=== PATIENT | female | born 1995 ===

== ENCOUNTER 2023-01-28 22:16 | Emergency (ER) | payer OTHER, SELFPAY ==
[2023-01-28] MEDS ORDERED: ONDANSETRON 4 MG/2 ML VIAL ONE (22:59)
[2023-01-28] MEDS ORDERED: NA CHLORIDE 0.9% 1,000 ML ONE (22:59)
[2023-01-28 23:18] LABS: Absolute Lymphocytes (CBC) 0.7 K/uL (0.7-4.9); Hematocrit 42.9 % (36.0-45.0); MCV 91.2 fL (80-100); MPV 9.9 fL (7.6-11.3); Platelets 267 thou/uL (152-406)
[2023-01-28 23:35] LABS: Albumin 3.5 g/dL (3.4-5.0); Bilirubin Total 1.2 mg/dL (0.2-1.0); Potassium 3.5 mEq/L (3.5-5.1)
[2023-01-29 00:16] LABS: Blood Morphology Comment NOT SEEN (NOT SEEN); Platelet Estimate ADEQ; White Blood Cell Scan OK (OK)
[2023-01-29] MEDS ORDERED: KETOROLAC 30 MG/ML INJ ONE (00:23)
[2023-01-29 00:52] LABS: Specific Gravity 1.029 (1.005-1.030)
--- NOTE | 2023-01-29 01:08 | ER ---
Nurse's Notes 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 ap3 patient rates the pain as a 6/10 on the pain scale at this time. Coronavirus screen: At this time, the client does not indicate any symptoms associated with coronavirus-19. Ebola Screen: No symptoms or risks identified at this time. Initial Sepsis Screen: Does the patient meet any 2 criteria? No. Patient's initial sepsis screen is negative. Does the patient have a suspected source of infection? Yes: Acute abdominal pain. Risk Assessment: Do you want to hurt yourself or someone else? Patient reports no desire to harm self or others. Onset of symptoms was January 28, 2023 at 10:00. 22:38 Method Of Arrival: Ambulatory ap3 22:38 Acuity: TOPHER 3 ap3 Triage Assessment: 22:39 General: Appears in no apparent distress. Behavior is cooperative, appropriate for age. ap3 Pain: Complains of pain in abdomen Pain currently is 6 out of 10 on a pain scale. at worst was 8 out of 10 on a pain scale. Pain began 12 hours ago. Neuro: Level of Consciousness is awake, alert, obeys commands, Oriented to person, place, time, situation. Cardiovascular: Patient's skin is warm and dry. Respiratory: Airway is patent Respiratory effort is even, unlabored, Respiratory pattern is regular, symmetrical. GI: Reports lower abdominal pain, upper abdominal pain, nausea, vomiting. 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 - Social history:: Smoking status: Patient reports the use of cigarette tobacco products, smokes 1.5 packs per day. Screenin:40 [facility] ED Fall Risk Assessment (Adult) History of falling in the last 3 months, ap3 including since admission No falls in past 3 months (0 pts). Abuse screen: Denies threats or abuse. Nutritional screening: No deficits noted. Tuberculosis screening: No symptoms or risk factors identified. Assessment: 23:00 General: Appears uncomfortable. GI: Reports intolerance of fluids, intolerance of food, nw1 nausea, vomiting. 23:00 Pain: Complains of pain in right leg and left leg. Cardiovascular: Reports shortness of nw1 breath, Denies chest pain. Respiratory: Reports shortness of breath at rest none noted. GI: Abdomen is flat. Musculoskeletal: No deficits noted. No signs and/or symptoms reported regarding the musculoskeletal system. 23:53 Reassessment: Pt request tylenol. made aware. nw1 01/29 00:38 Reassessment: Pt states relief from nausea. Pt ambulated to restroom and gave urine nw1 sample. Call light at bedside. Will continue to monitor. Vital Signs: 01/28 22:38 BP 134 / 83; Pulse 90; Resp 17; Temp 97.8; Pulse Ox 100% ; Weight 65.77 kg; Pain 6/10; ap3 23:00 BP 124 / 73; Pulse 89; Resp 19 S; Pulse Ox 97% on R/A; km8 01/29 00:00 BP 123 / 73; Pulse 90; Resp 17; Pulse Ox 98% ; nw1 00:30 BP 115 / 53; Pulse 86; Pulse Ox 97% ; nw1 01/28 22:38 Pain Scale: Adult ap3 ED Course: 01/28 22:21 Patient arrived in ED. ag3 22:30 Iain Lindsay DO is Attending Physician. ms3 22:39 Triage completed. ap3 22:40 Arm band placed on right wrist. ap3 22:40 Patient has correct armband on for positive identification. Bed in low position. Call ap3 light in reach. Side rails up X 1. Pulse ox on. NIBP on. 22:43 Philomena Holloway, RN is Primary Nurse. nw1 23:04 Inserted saline lock: 20 gauge in right antecubital area, using aseptic technique. nw1 Blood collected. 23:08 CBC with Diff Sent. nw1 23:08 CMP Sent. nw1 23:08 Lipase Sent. nw1 23:23 Provided Education on: POC. Therapeutic breathing techniques. Lights dimmed. nw1 23:24 No provider procedures requiring assistance completed. nw01/29 00:48 Test, Urine Sent. nw 01:07 Suraj Lewis DO is Referral Physician. ms3 01:36 IV discontinued, intact, bleeding controlled, No redness/swelling at site. Pressure nw1 dressing applied. Administered Medications: 01/28 23:00 Drug: NS 0.9% IV 1000 ml IV at 1 bolus Per protocol; 1000 mL bolus Route: IV; Rate: 1 nw1 bolus; Site: right antecubital; 23:00 Drug: Ondansetron IVP 4 mg IVP once; over 2 minutes Route: IVP; Site: right antecubital;nw01/29 00:17 Drug: Ketorolac IVP 10 mg 10 mg IVP once Route: IVP; Site: right antecubital; nw 00:48 Follow up: Response: No adverse reaction nw Medication: 00:20 VIS not applicable for this client. nw Outcome: 01/28 23:59 Discharged to nw1 01/29 00:20 Condition: stable nw1 Instructed on need for urine 01:07 Discharge ordered by . ms3 01:36 Discharged to home ambulatory, nw1 01:36 Condition: improved 01:36 Discharge instructions given to patient, Instructed on discharge instructions, follow up and referral plans. medication usage, Demonstrated understanding of instructions, follow-up care, medications, Prescriptions given X 1, 01:37 Patient left the ED. nw Signatures: Eunice Julio, RN RN ap3 Miladys Romero 3 Iain Lindsay DO DO ms3 Jess Britt RN RN km8 Philomena Holloway, JIHAN RN nw1 Corrections: (The following items were deleted from the chart) 00:00 01/28 23:56 Urine 950, output 950, nw nw01/29 00:00 01/28 23:56 BP 173 / 98; Pulse 88bpm; Resp 21bpm; Pulse Ox 95%; nw nw
--- NOTE | 2023-01-29 01:08 | EDPHYS ---
Physician Documentation [facility] Name: Annalisa Fuentes Age: 27 yrs Sex: Female : 1995 Arrival Date: 01/28/2023 Time: 22:16 Bed 16 Private MD: ED Physician Iain Lindsay HPI: 01/29 01:07 This 27 yrs old Female presents to ER via Ambulatory with complaints of Nausea/Vomiting.ms3 01:07 27-year-old female with no past medical history presents to the emergency department ms3 for nausea, vomiting, diarrhea that has been ongoing for 12 hours. Patient notes she has also had dizziness and upper abdominal pain. Patient states vomiting makes her symptoms better and denies inciting factors.. 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 - Social history:: Smoking status: Patient reports the use of cigarette tobacco products, smokes 1.5 packs per day. ROS: 01/29 01:07 Constitutional: Negative for fever, and chills. Cardiovascular: Negative for chest ms3 pain, and palpitations. Respiratory: Negative for shortness of breath, cough, wheezing, and pleuritic chest pain, MS/Extremity: Negative for injury and deformity, Skin: Negative for injury, rash, and discoloration, Abdomen/GI: Positive for abdominal pain, nausea, vomiting, diarrhea, All other systems are negative, Exam: 01:07 Constitutional: This is a well developed, well nourished patient who is awake, alert, ms3 and in no acute distress. Head/Face: Normocephalic, atraumatic. Neck: Trachea midline, no cervical lymphadenopathy. Supple, full range of motion without nuchal rigidity, or vertebral point tenderness. No Meningismus. Chest/axilla: Normal chest wall appearance and motion. Nontender with no deformity. Cardiovascular: Regular rate and rhythm with a normal S1 and S2. No gallops, murmurs, or rubs. Normal PMI, no JVD. No pulse deficits. Respiratory: Lungs have equal breath sounds bilaterally, clear to auscultation and percussion. No rales, rhonchi or wheezes noted. No increased work of breathing, no retractions or nasal flaring. Abdomen/GI: Soft, non-tender, with normal bowel sounds. No distension or tympany. No guarding or rebound. No evidence of tenderness throughout. Skin: Warm, dry with normal turgor. Normal color with no rashes, no lesions, and no evidence of cellulitis. MS/ Extremity: Pulses equal, no cyanosis. Neurovascular intact. Full, normal range of motion. Vital Signs: 01/28 22:38 BP 134 / 83; Pulse 90; Resp 17; Temp 97.8; Pulse Ox 100% ; Weight 65.77 kg; Pain 6/10; ap3 23:00 BP 124 / 73; Pulse 89; Resp 19 S; Pulse Ox 97% on R/A; km8 01/29 00:00 BP 123 / 73; Pulse 90; Resp 17; Pulse Ox 98% ; nw1 00:30 BP 115 / 53; Pulse 86; Pulse Ox 97% ; nw1 01/28 22:38 Pain Scale: Adult ap3 MDM: 01/28 22:35 Patient medically screened. ms3 01/29 01:07 Differential diagnosis: Nonspecific abd pain, gastritis, viral gastroenteritis, ms3 gastroenteritis. Data reviewed: vital signs, nurses notes, lab test result(s), and as a result, I will discharge patient. I considered the following discharge prescriptions or medication management in the emergency department Medications were administered in the Emergency Department. See MAR. Counseling: I had a detailed discussion with the patient and/or guardian regarding the historical points, exam findings, and any diagnostic results supporting the discharge/admit diagnosis, lab results, the need for outpatient follow up, to return to the emergency department if symptoms worsen or persist or if there are any questions or concerns that arise at home. Special discussion: Based on the patient's Hx, exam, and Dx evaluation, there is no indication for emergent surgery or inpatient Tx. It is understood by the patient/guardian that if the Sx's persist or worsen they need to return immediately for re-evaluation. ED course: Discussed labs with patient. White blood count likely elevated secondary to patient's emesis. Patient to follow-up with her primary care physician in 2 to 3 days. Patient understands agrees with plan. All questions were answered. Return precautions discussed include worsening symptoms, abdominal pain, or any other concerns. On reevaluation patient symptoms improved, patient is alert and orient x4, no apparent distress, nontoxic-appearing, ambulatory in emergency department, speaking full sentences, tolerating p.o. patient given prescription for p.o. Zofran. 01/28 22:35 Order name: CBC with Diff; Complete Time: 00:53 ms3 01/28 22:35 Order name: CMP; Complete Time: 00:02 ms3 01/28 22:35 Order name: Lipase; Complete Time: 00:02 ms3 01/28 23:21 Order name: CBC Smear Scan; Complete Time: 00:53 EDMS 01/29 00:02 Order name: Test, Urine; Complete Time: 01:04 ms3 01/28 22:35 Order name: IV Saline Lock; Complete Time: 23:00 ms3 01/28 22:35 Order name: Labs collected and sent; Complete Time: 23:00 ms3 01/29 00:54 Order name: PO challenge; Complete Time: 01:12 ms3 Administered Medications: 01/28 23:00 Drug: NS 0.9% IV 1000 ml IV at 1 bolus Per protocol; 1000 mL bolus Route: IV; Rate: 1 nw1 bolus; Site: right antecubital; 23:00 Drug: Ondansetron IVP 4 mg IVP once; over 2 minutes Route: IVP; Site: right antecubital;nw1 01/29 00:17 Drug: Ketorolac IVP 10 mg 10 mg IVP once Route: IVP; Site: right antecubital; nw1 00:48 Follow up: Response: No adverse reaction nw1 Disposition Summary: 01/29/23 01:07 Discharge Ordered Notes: Location: Home ms3 Condition: Stable ms3 Diagnosis - Nausea with vomiting, unspecified ms3 Followup: ms3 - With: Suraj Lewis, DO - When: 2 - 3 days - Reason: Recheck today's complaints Discharge Instructions: - Discharge Summary Sheet ms3 - Nausea and Vomiting, Adult ms3 Forms: - Medication Reconciliation Form ms3 - Thank You Letter ms3 - Antibiotic Education ms3 - Prescription Opioid Use ms3 - Patient Portal Instructions ms3 - Leadership Thank You Letter ms3 Prescriptions: - ondansetron 4 mg Oral Tablet,disintegrating - take 1 tablet ORAL route every 8 hours; 15 tablet; Refills: 0, Product ms3 Selection Permitted Signatures: Dispatcher [employer] Eunice Lentz, RN RN ap3 Iain Lindsay DO DO ms3 Philomena Holloway RN RN nw1
== END 2023-01-29 01:37 | disposition home or self-care (01) ==
LOC: ER 22:16
DX: R11.2 Nausea with vomiting, unspecified (principal)
CPT/HCPCS: 36415; 80053; 81025; 83690; 85025; 96374; 96375; 99284; J2405; J7030